=== PATIENT | female | born 1960 | race African-American/Black ===

== ENCOUNTER 2016-10-15 11:14 | Inpatient (IN) | payer OTHER ==
[2016-10-15 12:30] VITALS: BMI 19.5
--- NOTE | 2016-10-15 13:39 | HP ---
CIWA Score - CIWA Score Nausea/Vomitin-Mild Nausea/No Vomiting Muscle Tremors: 4-Moderate,w/Arms Extend Anxiety: 4-Mod. Anxious/Guarded Agitation: 1-Slight > Activity Paroxysmal Sweats: 1-Minimal Palms Moist Orientation: 0-Oriented Tacttile Disturbances: 1-Very Mild Itch/Numbness Auditory Disturbances: 1-Very Mild Visual Disturbances: 1-Very Mild Sensitivity Headache: 2-Mild CIWA-Ar Total Score: 16 Admission ROS BHS - HPI Chief Complaint: It's time, I was doing good for years, I have a job, I need to stop. Allergies/Adverse Reactions: Allergies Allergy/AdvReac Type Severity Reaction Status Date / Time No Known Allergies Allergy Verified 10/15/16 13:33 History of Present Illness: 56 yo woman here for detox from alcohol - was in rehab 1997 and did well until a few months ago when she relapsed. No seizures, has lost weight. Exam Limitations: Clinical Condition - Ebola screening Have you traveled outside of the country in the last 21 days: No Have you had contact with anyone from an Ebola affected area: No Have you been sick,other than usual withdrawal symptoms: No Do you have a fever: No - Review of Systems Constitutional: Loss of Appetite, Malaise, Changes in sleep, Unintentional Wgt. Loss EENT: reports: No Symptoms Reported Respiratory: reports: No Symptoms reported Cardiac: reports: No Symptoms Reported GI: reports: Diarrhea, Poor Appetite, Indigestion : reports: Frequency Musculoskeletal: reports: No Symptoms Reported Integumentary: reports: No Symptoms Reported Neuro: reports: Headache Endocrine: reports: No Symptoms Reported Hematology: reports: No Symptoms Reported Psychiatric: reports: Judgement Intact, Mood/Affect Appropiate, Orientated x3, Anxious Other Systems: Reviewed and Negative Patient History - Patient Medical History Hx Anemia: No Hx Asthma: No Hx Chronic Obstructive Pulmonary Disease (COPD): Yes Hx Cancer: No Hx Cardiac Disorders: No Hx Congestive Heart Failure: No Hx Hypertension: Yes Hx Hypercholesterolemia: No Hx Pacemaker: No HX Cerebrovascular Accident: No Hx Seizures: No Hx Dementia: No Hx Diabetes: No Hx Gastrointestinal Disorders: No Hx Liver Disease: No Hx Genitourinary Disorders: No Hx Sexually Transmitted Disorders: Yes (treated with PCN years ago 'three shot') Hx Renal Disease (ESRD): No Hx Thyroid Disease: No Hx Human Immunodeficiency Virus (HIV): No Hx Hepatitis C: No Hx Depression: Yes (never hospitalized, never saw psych) Hx Suicide Attempt: No Hx Bipolar Disorder: No Hx Schizophrenia: No - Patient Surgical History Past Surgical History: Yes Hx Neurologic Surgery: No Hx Cataract Extraction: No Hx Cardiac Surgery: No Hx Lung Surgery: No Hx Breast Surgery: No Hx Breast Biopsy: No Hx Abdominal Surgery: No Hx Appendectomy: No Hx Cholecystectomy: Yes (2012) Hx Genitourinary Surgery: Yes (cervical cone biopsy) Hx Section: Yes Hx Orthopedic Surgery: No Hx Hysterectomy: No Anesthesia Reaction: No - PPD History Previous Implant?: Yes Documented Results: Negative w/o proof Implanted On Prior R Admission?: No PPD to be Administered?: Yes - Reproductive History Patient is a Female of Child Bearing Age (11 -55 yrs old): No - Smoking Cessation Smoking history: Current every day smoker Have you smoked in the past 12 months: Yes Aproximately how many cigarettes per day: 30 Hx Chewing Tobacco Use: No Initiated information on smoking cessation: Yes 'Breaking Loose' booklet given: 10/15/16 (give on floor) - Substance & Tx. History Hx Alcohol Use: Yes Hx Substance Use: Yes Substance Use Type: Alcohol, Marijuana Hx Substance Use Treatment: Yes (rehab 1997) - Substances Abused Alcohol Route: Oral Frequency: Daily Amount used: two 40oz coors beer; four one oz bottles vodka Age of first use: 10 Date of Last Use: 10/15/16 Marijuana/Hashish Route: Smoking Frequency: Daily Amount used: 2 joints Age of first use: 56 Date of Last Use: 10/14/16 Family Disease History - Family Disease History Family Disease History: CA: Father (, etoh, ), Mother (, etoh), Other: Father, Mother, Son (cerebral palsy) Admission Physical Exam BHS - Vital Signs Vital Signs: Vital Signs - 24 hr 10/15/16 12:28 Temperature 98.9 F Pulse Rate 98 H Respiratory 20 Rate Blood Pressure 158/97 - Physical General Appearance: Yes: Nourished, Appropriately Dressed, Mild Distress, Anxious HEENTM: Yes: Hearing grossly Normal, Normocephalic, Normal Voice Respiratory: Yes: Normal Breath Sounds, No Respiratory Distress Neck: Yes: No masses,lesions,Nodules, Supple Breast: Yes: Breast Exam Deferred Cardiology: Yes: Regular Rhythm, Regular Rate Abdominal: Yes: Soft Genitourinary: Yes: Frequency Back: Yes: Normal Inspection Musculoskeletal: Yes: full range of Motion, Gait Steady Extremities: Yes: Normal Inspection Neurological: Yes: Fully Oriented, Alert, Normal Mood/Affect, Normal Response Integumentary: Yes: Normal Color, Warm Lymphatic: Yes: Within Normal Limits - Diagnostic (1) Alcohol dependence with uncomplicated withdrawal Current Visit: Yes Status: Acute (2) COPD (chronic obstructive pulmonary disease) Current Visit: Yes Status: Chronic Qualifiers: COPD type: emphysema Emphysema type: unspecified Qualified Code( s): J43.9 - Emphysema, unspecified (3) Cannabis dependence Current Visit: Yes Status: Chronic (4) HTN (hypertension) Current Visit: Yes Status: Chronic Qualifiers: Hypertension type: essential hypertension Qualified Code(s): I10 - Essential (primary) hypertension (5) Nicotine dependence Current Visit: Yes Status: Chronic Qualifiers: Nicotine product type: cigarettes Substance use status: uncomplicated Qualified Code(s): F17.210 - Nicotine dependence, cigarettes, uncomplicated Cleared for Admission S - Detox or Rehab [facility] Level of Care: Medically Managed Detox Regimen/Protocol: Librium [facility] Breath Alcohol Content Breath Alcohol Content: 0 Urine Pregancy Test - Result Urine Test Results: Negative- NO Line Present Urine Drug Screen - Results Drug Screen Negative: No Urine Drug Screen Results: THC-Marijuana
[2016-10-15] MEDS ORDERED: MAGNESIUM HYDROX 2400MG/30ML ORAL SUSPENSION 30 ML CUP PO PRN (13:46)
[2016-10-15] MEDS ORDERED: P-EPHED 60MG/TRIPROLIDI 2.5MG TABLET PO PRN (13:46)
[2016-10-15] MEDS ORDERED: NICOTINE POLACRILEX 4 MG GUM BUC PRN (13:46)
[2016-10-15] MEDS ORDERED: LOPERAMIDE HCL 2 MG CAPSULE PO PRN (13:46)
[2016-10-15] MEDS ORDERED: chlordiazePOXIDE HCL 25 MG CAPSULE PO PRN (13:46)
[2016-10-15] MEDS ORDERED: hydrOXYzine PAMOATE 50 MG CAPSULE (FP) PO PRN (13:46)
[2016-10-15] MEDS ORDERED: MAGNESIUM CITRATE 300 ML BOTTLE PO PRN (13:46)
[2016-10-15] MEDS ORDERED: MENTHOL/PHENOL 1 EACH UD MM PRN (13:46)
[2016-10-15] MEDS ORDERED: IBUPROFEN 400 MG TABLET (FP) PO PRN (13:46)
[2016-10-15] MEDS ORDERED: guaiFENesin/D-METHORPHAN HB 10 ML UNIT-DOSE CUPS PO PRN (13:46)
[2016-10-15] MEDS ORDERED: ACETAMINOPHEN 325 MG TABLET (FP) PO PRN (13:46)
[2016-10-15] MEDS ORDERED: diphenhydrAMINE HCL 50 MG CAPSULE PO PRN (13:46)
[2016-10-15] MEDS ORDERED: chlordiazePOXIDE HCL 25 MG CAPSULE PO ONE (13:46)
[2016-10-15] MEDS ORDERED: MAG HYDROX/AL HYDROX/SIMETH 30 ML UNIT-DOSE CUP PO PRN (13:46)
[2016-10-15] MEDS ORDERED: ALBUTEROL SO4 6.7 GM HFA INHALER IH PRN (13:48)
[2016-10-15] MEDS: LISINOPRIL 20 MG TABLET (FP) PO SCH (15:35)
[2016-10-15 17:56] LABS: URINE APPEARANCE CLEAR; URINE BILIRUBIN NEGATIVE (NEGATIVE); URINE BLOOD NEGATIVE (NEGATIVE); URINE COLOR YELLOW; URINE GLUCOSE (UA) NEGATIVE (NEGATIVE); URINE KETONE NEGATIVE (NEGATIVE); URINE NITRITE NEGATIVE (NEGATIVE); URINE PROTEIN NEGATIVE (NEGATIVE); URINE UROBILINOGEN 2.0 E.U/dl E.U./dl (0.2-1.0)
[2016-10-15 17:59] LABS: URINE LEUK ESTERASE 1+ (NEGATIVE)
[2016-10-15 18:14] LABS: URINE MUCUS RARE; URINE RBC 1 /hpf (0-3); URINE WBC 5 /hpf (3-5)
[2016-10-15] MEDS: chlordiazePOXIDE HCL 25 MG CAPSULE PO SCH ×2 (18:47→22:25)
[2016-10-15] MEDS: THIAMINE HCL 100 MG TABLET (FP) PO SCH (22:25)
[2016-10-16] MEDS: chlordiazePOXIDE HCL 25 MG CAPSULE PO SCH ×4 (05:48→22:41)
[2016-10-16] MEDS ORDERED: PRENATAL VITAMINS W/ FOLIC ACID TABLET (FP) PO SCH (10:00)
[2016-10-16 10:30] LABS: MCH 30.8 pg (25.7-33.7); MCHC 32.5 g/dl (32.0-36.0); MEAN CELL VOLUME 94.8 fl (80-96); MEAN PLT VOLUME 8.2 fl (7.5-11.1); PLATELET COUNT 231 K/MM3 (134-434); RDW 15.1 % (11.6-15.6); WHITE BLOOD COUNT 9.5 K/mm3 (4.0-10.0)
[2016-10-16] MEDS: LISINOPRIL 20 MG TABLET (FP) PO SCH (10:42)
[2016-10-16 10:58] LABS: ALBUMIN 3.4 g/dl (3.4-5.0); ALK PHOS 75 U/L (45-117); ANION GAP 12 (8-16); BILIRUBIN,TOTAL 0.5 mg/dL (0.2-1.0); CALCIUM 8.9 mg/dL (8.5-10.1); CO2 27 mmol/L (21-32); CREATININE 0.7 mg/dL (0.55-1.02); GLUCOSE,RANDOM 96 mg/dL (74-106); SGOT/AST 23 U/L (15-37); SGPT/ALT 42 U/L (12-78); TOT PROT 5.9 g/dl (6.4-8.2)
[2016-10-16] MEDS ORDERED: INFLUENZA VACCINE 45 MCG/0.5 ML (MDV 16-17) IM ONE (12:00)
--- NOTE | 2016-10-16 12:47 | PN ---
S CIWA - CIWA Score Nausea/Vomitin Muscle Tremors: 3 Anxiety: 3 Agitation: 2 Paroxysmal Sweats: 1-Minimal Palms Moist Orientation: 0-Oriented Tacttile Disturbances: 2-Mild Itch/Numbness/Burn Auditory Disturbances: 2-Mild Harshness/Frighten Visual Disturbances: 2-Mild Sensitivity Headache: 2-Mild CIWA-Ar Total Score: 20 BHS Progress Note (SOAP) Subjective: alert,irritable,anxious,interrupted sleep,tremor,nausea Objective: 10/16/16 12:45 Vital Signs Temperature 97 F L 10/16/16 09:36 Pulse Rate 80 10/16/16 09:36 Respiratory Rate 16 10/16/16 09:36 Blood Pressure 126/77 10/16/16 09:36 O2 Sat by Pulse Oximetry (%) ekg nsr,prolong qt Laboratory Last Values WBC 9.5 K/mm3 (4.0-10.0) 10/16/16 07:45 RBC 4.26 M/mm3 (3.60-5.2) 10/16/16 07:45 Hgb 13.1 GM/dL (10.7-15.3) 10/16/16 07:45 Hct 40.3 % (32.4-45.2) 10/16/16 07:45 MCV 94.8 fl (80-96) 10/16/16 07:45 MCHC 32.5 g/dl (32.0-36.0) 10/16/16 07:45 RDW 15.1 % (11.6-15.6) 10/16/16 07:45 Plt Count 231 K/MM3 (134-434) 10/16/16 07:45 MPV 8.2 fl (7.5-11.1) 10/16/16 07:45 Sodium 142 mmol/L (136-145) 10/16/16 07:45 Potassium 3.4 mmol/L (3.5-5.1) L 10/16/16 07:45 Chloride 103 mmol/L (98-107) 10/16/16 07:45 Carbon Dioxide 27 mmol/L (21-32) 10/16/16 07:45 Anion Gap 12 (8-16) 10/16/16 07:45 BUN 7 mg/dL (7-18) 10/16/16 07:45 Creatinine 0.7 mg/dL (0.55-1.02) 10/16/16 07:45 Creat Clearance w eGFR > 60 (>60) 10/16/16 07:45 Random Glucose 96 mg/dL (74-106) 10/16/16 07:45 Calcium 8.9 mg/dL (8.5-10.1) 10/16/16 07:45 Total Bilirubin 0.5 mg/dL (0.2-1.0) 10/16/16 07:45 AST 23 U/L (15-37) 10/16/16 07:45 ALT 42 U/L (12-78) 10/16/16 07:45 Alkaline Phosphatase 75 U/L (45-117) 10/16/16 07:45 Total Protein 5.9 g/dl (6.4-8.2) L 10/16/16 07:45 Albumin 3.4 g/dl (3.4-5.0) 10/16/16 07:45 Urine Color Yellow 10/15/16 17:40 Urine Appearance Clear 10/15/16 17:40 Urine pH 6.0 (5.0-8.0) 10/15/16 17:40 Ur Specific [place] 1.016 (1.001-1.035) 10/15/16 17:40 Urine Protein Negative (NEGATIVE) 10/15/16 17:40 Urine Glucose (UA) Negative (NEGATIVE) 10/15/16 17:40 Urine Ketones Negative (NEGATIVE) 10/15/16 17:40 Urine Blood Negative (NEGATIVE) 10/15/16 17:40 Urine Nitrite Negative (NEGATIVE) 10/15/16 17:40 Urine Bilirubin Negative (NEGATIVE) 10/15/16 17:40 Urine Urobilinogen 2.0 e.u/dl E.U./dl (0.2-1.0) H 10/15/16 17:40 Ur Leukocyte Esterase 1+ (NEGATIVE) H 10/15/16 17:40 Urine RBC 1 /hpf (0-3) 10/15/16 17:40 Urine WBC 5 /hpf (3-5) 10/15/16 17:40 Ur Epithelial Cells Rare /hpf (FEW) 10/15/16 17:40 Urine Mucus Rare 10/15/16 17:40 labs pending Assessment: 10/16/16 12:46 withdrawal symptom Plan: continue detox,hypokalemia,k is 3.4,k dur 20 meq po daily
[2016-10-16] MEDS ORDERED: POTASSIUM CHLORIDE TABS 20 MEQ TABLET.ER (FP) PO ONE (12:48)
[2016-10-16 13:08] LABS: HIV 1 & 2 AB NEGATIVE; HIV 1 AGp24 NEGATIVE
[2016-10-16] MEDS: THIAMINE HCL 100 MG TABLET (FP) PO SCH (22:41)
--- NOTE | 2016-10-17 00:48 | EKG ---
Test Reason : Blood Pressure : / mmHG Vent. Rate : 077 BPM Atrial Rate : 077 BPM P-R Int : 148 ms QRS Dur : 092 ms QT Int : 438 ms P-R-T Axes : 077 078 079 degrees QTc Int : 495 ms NORMAL SINUS RHYTHM PROLONGED QT ABNORMAL ECG NO PREVIOUS ECGS AVAILABLE Confirmed by LATANYA ARMAS MD ([id number]) on 10/17/2016 12:48:18 AM Referred By: Confirmed By:LATANYA ARMAS MD
[2016-10-17] MEDS: chlordiazePOXIDE HCL 25 MG CAPSULE PO SCH (06:35)
--- NOTE | 2016-10-17 09:55 | CONSULT ---
[facility] Psychiatric Consult - Data Date of interview: 10/17/16 Admission source: [facility] Identifying data: First admission to [facility] for this 56 y/o AA female seeking detox treatment on for alcohol and marijuana dependence.Patient is ,a mother of four,domiciled and employed. Substance Abuse History: - Smoking Cessation. Smoking history: Current every day smoker. Have you smoked in the past 12 months: Yes. Aproximately how many cigarettes per day: 30. Hx Chewing Tobacco Use: No. Initiated information on smoking cessation: Yes. 'Breaking Loose' booklet given: 10/15/16 (give on floor ). - Substance & Tx. History. Hx Alcohol Use: Yes. Hx Substance Use: Yes. Substance Use Type: Alcohol, Marijuana. Hx Substance Use Treatment: Yes (rehab 1997). - Substances Abused. Alcohol. Route: Oral. Frequency: Daily. Amount used: two 40oz coors beer; four one oz bottles vodka. Age of first use: 10. Date of Last Use: 10/15/16. Marijuana/Hashish. Route: Smoking. Frequency: Daily. Amount used: 2 joints. Age of first use: 56. Date of Last Use: 10/14/16. Confirmed by the patient in this interview. Medical History: Remarkable for hypertension,COPD,past treatment for syphilis and a history of cholecystectomy. Psychiatric History: Patient denies. Physical/Sexual Abuse/Trauma History: Patient denies. Additional Comment: Urine Drug Screen Results: THC-Marijuana.Noted. Mental Status Exam - Mental Status Exam Alert and Oriented to: Time, Place, Person Cognitive Function: Good Patient Appearance: Well Groomed Mood: Hopeful, Euthymic Affect: Appropriate, Normal Range Patient Behavior: Appropriate, Cooperative Speech Pattern: Clear, Appropriate Voice Loudness: Normal Thought Process: Intact, Goal Oriented Thought Disorder: Not Present Hallucinations: Denies Suicidal Ideation: Denies Homicidal Ideation: Denies Insight/Judgement: Fair Sleep: Well Appetite: Good Muscle strength/Tone: Normal Gait/Station: Normal Psychiatric Findings - Problem List ([place] 1, 2,3) (1) Alcohol dependence with uncomplicated withdrawal Current Visit: Yes Status: Acute (2) Cannabis dependence Current Visit: Yes Status: Acute (3) Nicotine dependence Current Visit: Yes Status: Acute Qualifiers: Nicotine product type: cigarettes Substance use status: uncomplicated Qualified Code(s): F17.210 - Nicotine dependence, cigarettes, uncomplicated (4) Syphilis contact, treated Current Visit: No Status: Chronic (5) COPD (chronic obstructive pulmonary disease) Current Visit: Yes Status: Chronic Qualifiers: COPD type: emphysema Emphysema type: unspecified Qualified Code( s): J43.9 - Emphysema, unspecified (6) HTN (hypertension) Current Visit: Yes Status: Chronic Qualifiers: Hypertension type: essential hypertension Qualified Code(s): I10 - Essential (primary) hypertension - Initial Treatment Plan Initial Treatment Plan: Psychoeducation.Detoxification.Observation.
[2016-10-17] MEDS ORDERED: POTASSIUM CHLORIDE TABS 20 MEQ TABLET.ER (FP) PO SCH (10:00)
--- NOTE | 2016-10-17 10:16 | PN ---
S CIWA - CIWA Score Nausea/Vomitin Muscle Tremors: 3 Anxiety: 3 Agitation: 2 Paroxysmal Sweats: 1-Minimal Palms Moist Orientation: 0-Oriented Tacttile Disturbances: 1-Very Mild Itch/Numbness Auditory Disturbances: 1-Very Mild Visual Disturbances: 1-Very Mild Sensitivity Headache: 2-Mild CIWA-Ar Total Score: 17 BHS Progress Note (SOAP) Subjective: ALERT,IRRITABLE,ANXIOUS,INTERRUPTED SLEEP,TREMOR Objective: 10/17/16 10:16 Vital Signs Temperature 98.2 F 10/17/16 06:49 Pulse Rate 79 10/17/16 06:49 Respiratory Rate 18 10/17/16 06:49 Blood Pressure 124/68 10/17/16 06:49 O2 Sat by Pulse Oximetry (%) 10/17/16 10:16 Assessment: 10/17/16 10:17 WITHDRAWAL SYMPTOM Plan: CONTINUE DETOX
--- NOTE | 2016-10-17 10:19 | PN ---
S Progress Note Note: PATIENT DID NOT WANT TO COMPLETE TREATMENT,SIGNED RELEASE AMA,DID NOT WANT TO WAIT
--- NOTE | 2016-10-17 10:23 | DS ---
[facility] Detox Discharge Summary Admission Date: 10/15/16 Discharge Date: 10/17/16 - History Present History: Alcohol Dependence, Cannabis Dependence Additional Comments: PATIENT HAS MEDICATION FOR HYPERTENSION AT HOME.NO MEDICATION FOR ASTHMA, ALBUTEROL INHALER DID NOT WANT TO COMPLETE TREATMENT,SIGNED RELEASE AMA, ALBUREOL INHALER E PRESCRIPTION TO [facility],HYPOKALEMIA K 3.4 HAS BEEN RECIEVING K JENNIFER ,ADVISE BANANA AND [facility],TO SEE PMD FOR FOLLOW UP Pertinent Past History: COPD HYPERTENSION NICOTINE DEPENDENCE NICOTINE DEPENDENCE HYPOKALEMIA - Physical Exam Results Vital Signs: Vital Signs Temperature 98.2 F 10/17/16 06:49 Pulse Rate 79 10/17/16 06:49 Respiratory Rate 18 10/17/16 06:49 Blood Pressure 124/68 10/17/16 06:49 O2 Sat by Pulse Oximetry (%) Pertinent Admission Physical Exam Findings: WITHDRAWAL SYMPTOM - Medication Discharge Medications: Ambulatory Orders Albuterol Sulfate Inhaler - [Ventolin Hfa Inhaler -] 2 inh PO Q4H PRN 10/15/16 Lisinopril [Prinivil] 20 mg PO DAILY 10/15/16 - Diagnosis (1) Alcohol dependence with uncomplicated withdrawal Current Visit: Yes Status: Acute (2) COPD (chronic obstructive pulmonary disease) Current Visit: Yes Status: Chronic Qualifiers: COPD type: emphysema Emphysema type: unspecified Qualified Code( s): J43.9 - Emphysema, unspecified (3) Cannabis dependence Current Visit: Yes Status: Chronic (4) HTN (hypertension) Current Visit: Yes Status: Chronic Qualifiers: Hypertension type: essential hypertension Qualified Code(s): I10 - Essential (primary) hypertension (5) Nicotine dependence Current Visit: Yes Status: Chronic Qualifiers: Nicotine product type: cigarettes Substance use status: uncomplicated Qualified Code(s): F17.210 - Nicotine dependence, cigarettes, uncomplicated - AMA Did Patient Leave Against Medical Advice: Yes
[2016-10-17 11:26] VITALS: BP 126/79; PULSE 99; TEMP 97.9
[2016-10-17] MEDS ORDERED: INFLUENZA VACCINE 45 MCG/0.5 ML (MDV 16-17) IM ONE (12:00)
[2016-10-17] MEDS ORDERED: chlordiazePOXIDE 5 MG CAPSULE PO SCH (17:00)
[2016-10-18] MEDS ORDERED: chlordiazePOXIDE HCL 10 MG CAPSULE PO SCH (17:00)
== END 2016-10-17 11:06 | disposition left against medical advice (07) | DRG 894 ==
LOC: YASAS 11:14 → Y6N 14:31
PROVIDERS: ADMIT Internal Medicine; ATTEND Internal Medicine Addiction Medicine
PROC: HZ2ZZZZ Detoxification Services for Substance Abuse Treatment (ICD-10-PCS; principal; 2016-10-15)
DX: F10.230 Alcohol dependence with withdrawal, uncomplicated (principal); F12.20 Cannabis dependence, uncomplicated; F17.210 Nicotine dependence, cigarettes, uncomplicated; I10 Essential (primary) hypertension; J43.9 Emphysema, unspecified; E87.6 Hypokalemia; Z87.42 Personal history of other diseases of the female genital tract
CPT/HCPCS: 36415; 80053; 81003; 81015; 85027; 86593; 87389; 93005; 93010